=== PATIENT | male | born 1990 | race Caucasian/White ===

== ENCOUNTER 2021-10-16 16:10 | Emergency (ER) | payer OTHER, SELFPAY ==
[2021-10-16] VITALS (26 sets, daily range): BP systolic 130–155; BP diastolic 78–100; PULSE 71–112; RESP 10–18; TEMP 36.4–36.6; O2SAT 98–100
--- NOTE | ~2021-10-16 | XR_ITS ---
EXAMINATION: XR chest 2V DATE: 10/16/2021 16:27 INDICATION: Onset chest pain, tachycardia and shortness of breath TECHNIQUE: PA and lateral views of the chest were obtained. COMPARISON: None FINDINGS: The lungs are clear with no focal airspace opacities, pulmonary edema, pleural effusion or pneumothor ax. The cardiomediastinal silhouette is normal. Mild thoracic spondylosis. Chronic mild anterior wedg ing of a couple lower thoracic vertebral bodies. IMPRESSION: 1. No acute cardiopulmonary disease. Reviewed, dictated and finalized at location A. 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
--- NOTE | 2021-10-16 16:13 | ECG_ITS ---
Measurements Intervals [place] Rate: 109 P: 52 HI: 144 QRS: 69 QRSD: 91 T: 47 QT: 320 QTc: 431 Interpretive Statements SINUS TACHYCARDIA ABNORMAL RHYTHM ECG NO PREVIOUS ECG AVAILABLE FOR COMPARISON Electronically Signed On 10-16-2021 19:36:35 ENVIRONMENTAL HEALTH PHYSICIAN by Abby Draper M.D.
[2021-10-16 16:31] LABS: Basophils Percent Auto 0.3 % (0.2-1.2); Eosinophils Absolute Auto 0.3 K/mm3 (0-0.3); Hematocrit 46.1 % (42.0-52.0); Hemoglobin 15.8 g/dL (14.0-18.0); Immature Granulocyte Absolute 0.05 K/mm3 (0.00-0.031); Immature Granulocyte Percent A 0.4 % (0-0.5); Lymphocytes Absolute Auto 4.92 K/mm3 (0.9-3.2); Lymphocytes Percent Auto 38.5 % (18.3-44.2); Mean Corpuscular HGB Conc 34.3 g/dl (32-36); Mean Corpuscular Hemoglobin 29.4 pg (26-34); Mean Corpuscular Volume 85.8 fl (80-100); Mean Platelet Volume 9.1 fl (7.4-10.4); Monocytes Percent Auto 7.8 % (2.6-8.5); Neutrophils Absolute Auto 6.5 K/mm3 (1.3-6.7); Platelet Count Result 327 k/mm3 (150-375); Red Blood Count 5.37 M/mm3 (4.6-6.20); Red Cell Distribution Width 13.5 % (11.5-14.5); White Blood Count 12.8 K/mm3 (4.5-10.0)
[2021-10-16] MEDS: ASPIRIN 81 MG CHEWABLE TABLET 324 MG PO (16:32)
[2021-10-16] MEDS: SODIUM CHLORIDE 0.9% IV 1,000 ML 999 ML IV CONT (16:34)
--- NOTE | 2021-10-16 16:39 | ED.ARRPALP ---
HPI - Arrhythmia/Palpitations General Chief Complaint: Arrhythmia/Palpitations Stated Complaint: heart racing, left arm pain Time Seen by Provider: 10/16/21 16:22 Source: patient Mode of arrival: ambulatory Limitations: no limitations History of Present Illness HPI narrative: This is a 31 year old male that presents to the ER for anxiety. Reports worsening anxiety and stress. Reports today he woke up from a nap and left pain in the left shoulder and felt like his heart was racing which prompted him to be seen. Reports family history of coronary artery disease which concerned him and prompted him to be seen. Denies fever, cough or dyspnea. Related Data Allergies Allergy/AdvReac Type Severity Reaction Status Date / Time No Known Allergies Allergy Mild Verified 01/05/13 09:38 Review of Systems Review of Systems: CONSTITUTIONAL: Denies fever CARDIOVASCULAR: Reports chest pain and palpitations. Denies edema. RESPIRATORY: Denies cough or dyspnea. All systems reviewed & are unremarkable except as noted in HPI and below PMFSH Past Medical History Medical History (Updated 10/16/21 @ 19:39 by Myra Camarillo PA-C) History of anxiety Surgical History Surgical History (Updated 10/16/21 @ 16:43 by Myra Camarillo PA-C) History of appendectomy Social History Social History (Updated 10/16/21 @ 16:44 by Myra Camarillo PA-C) Smoking status: Current every day smoker Exam Narrative: GENERAL: Well-appearing, well-nourished, and in no acute distress. HEAD: Normocephalic, atraumatic. EYES: EOMI. ENT: Mucous membranes moist. Oropharynx without tonsillar hypertrophy exudate or other lesions. CHEST: Clear to auscultation. No respiratory distress. No wheezes rales or rhonchi HEART: Regular rate and rhythm. No murmur heard. Normal peripheral pulses. EXTREMITIES: Normal range of motion. No edema. SKIN: Warm, dry, no rash. NEURO: No focal deficits. Alert and oriented x3. PSYCH: Normal mood and affect Course Vital Signs Vital signs: Vital Signs Temperature 97.9 F 10/16/21 16:14 Pulse Rate 112 H 10/16/21 16:14 Respiratory Rate 18 10/16/21 16:14 Blood Pressure 150/94 H 10/16/21 16:14 Pulse Oximetry 100 10/16/21 16:14 Temperature 97.8 F 10/16/21 16:36 Pulse Rate 79 10/16/21 18:47 Respiratory Rate 12 10/16/21 18:47 Blood Pressure 135/84 10/16/21 18:47 Pulse Oximetry 100 10/16/21 18:47 MDM - Arrhythmia/Palpitations MDM Narrative Medical decision making narrative: Patient presents to the emergency department for anxiety and chest tightness. Tachycardic upon arrival, this normalized with IV fluids. Blood pressure also elevated on arrival, this normalized without intervention. CBC with mild leukocytosis to 12.8. Metabolic panel and lipase without concerning findings. EKG without acute ST changes and baseline and 3-hour troponin are negative. Chest x-ray without acute cardiopulmonary abnormality. Patient's heart score is a 1. He was updated on case findings. He is stable and felt appropriate for further outpatient evaluation. He was given warnings to return to the ER Lab Data Attestation: I reviewed the patient's lab results. Result diagrams: 10/16/21 16:23 10/16/21 16:23 Labs: Lab Results 10/16/21 10/16/21 10/16/21 Range/Units 16:23 16:23 16:23 WBC 12.8 H (4.5-10.0) K/mm3 RBC 5.37 (4.6-6.20) M/mm3 Hgb 15.8 (14.0-18.0) g/dL Hct 46.1 (42.0-52.0) % MCV 85.8 (80-100) fl MCH 29.4 (26-34) pg MCHC 34.3 (32-36) g/dl RDW 13.5 (11.5-14.5) % Plt Count 327 (150-375) k/mm3 MPV 9.1 (7.4-10.4) fl Immature Gran % (Auto) 0.4 (0-0.5) % Neut % (Auto) 51.0 (45.5-73.1) % Lymph % (Auto) 38.5 (18.3-44.2) % [place] % (Auto) 7.8 (2.6-8.5) % Eos % (Auto) 2.0 (0-4.4) % Baso % (Auto) 0.3 (0.2-1.2) % Lymph # (Auto) 4.92 H (0.9-3.2) K/mm3 [place] # (Auto) 1.0 H (0.1-0.6) K/mm3 Eos # (Auto)
[2021-10-16 16:40] LABS: Alanine Aminotransferase 46 U/L (4-50); Albumin Level 4.8 g/dL (3.5-5.1); Alkaline Phosphatase 120 U/L (38-126); Anion Gap 9 mmol/L (8-16); Aspartate Amino Transferase 34 U/L (17-59); Bilirubin,Total 0.5 mg/dL (0.2-1.3); Blood Urea Nitrogen 12 mg/dL (9-20); Calcium 9.3 mg/dL (8.4-10.2); Carbon Dioxide 25 mmol/L (22-30); Chloride 106 mmol/L (98-107); Estimated CRCL calculation 112 ml/min; Estimated Glomerular Filt Rate > 60; Glucose 133 mg/dL (65-110); Lipase 258 U/L (23-300); Potassium 3.9 mmol/L (3.4-5.0); Sodium 140 mmol/L (137-145)
[2021-10-16 16:42] LABS: INR 0.9; Partial Thromboplastin Time 26.5 SECONDS (22.3-36.8); Prothrombin Time 12.2 Seconds (11.1-14.7)
[2021-10-16 16:52] LABS: Troponin I < 0.012 ng/mL (0.000-0.034)
[2021-10-16] MEDS: LORazepam INJ (*CRX) 2 MG/ML VIAL 0.5 MG IV PUSH (17:10)
--- NOTE | 2021-10-16 18:47 | PC.NURSE ---
Dinner offered. Pt sitting on the side the side of the bed. No distress noted.
[2021-10-16 19:31] LABS: Troponin I < 0.012 ng/mL (0.000-0.034)
== END 2021-10-16 19:47 | disposition home or self-care (01) ==
PROVIDERS: Emergency Medicine; Emergency Provider Emergency Medicine
DX: F41.9 Anxiety disorder, unspecified (principal); R07.9 Chest pain, unspecified; F17.200 Nicotine dependence, unspecified, uncomplicated; R00.0 Tachycardia, unspecified
CPT/HCPCS: 36415; 71046; 80053; 83690; 84484; 85025; 85610; 85730; 93005; 96361; 96374; 99284; A9270; J2060; J7030

== ENCOUNTER 2021-10-18 23:13 | Emergency (ER) | payer OTHER, SELFPAY ==
--- NOTE | ~2021-10-18 | XR_ITS ---
EXAMINATION: XR chest 2V DATE: 10/19/2021 01:50 INDICATION: Chest pain TECHNIQUE: PA and lateral views of the chest were obtained. COMPARISON: Chest radiograph dated 10/16/2021 FINDINGS: The lungs remain clear with no focal airspace opacities, pulmonary edema, pleural effusion or pneumot horax. The cardiomediastinal silhouette is normal. Chronic mild anterior wedging of a few lower thora cic vertebral bodies. IMPRESSION: 1. No acute cardiopulmonary disease. Reviewed, dictated and finalized at location A.
[2021-10-18 23:15] VITALS: BP 151/96; PULSE 98; RESP 16; TEMP 36.6; O2SAT 98
--- NOTE | 2021-10-18 23:19 | ECG_ITS ---
Measurements Intervals [place] Rate: 87 P: 61 AR: 159 QRS: 62 QRSD: 102 T: 46 QT: 350 QTc: 421 Interpretive Statements SINUS RHYTHM WITH MARKED SINUS ARRHYTHMIA COMPARED TO ECG 10/16/2021 16:16:08 SINUS RHYTHM NOW PRESENT SINUS ARRHYTHMIA NOW PRESENT Electronically Signed On 10-19-2021 18:12:54 CDT by Abby Draper M.D.
[2021-10-18 23:30] VITALS: PULSE 96
[2021-10-19 00:56] VITALS: BP 125/86; PULSE 79; RESP 14; O2SAT 98
[2021-10-19 01:18] LABS: Basophils Absolute Auto 0.1 K/mm3 (0.0-0.1); Basophils Percent Auto 0.4 % (0.2-1.2); Eosinophils Absolute Auto 0.3 K/mm3 (0-0.3); Eosinophils Percent Auto 2.5 % (0-4.4); Hematocrit 46.1 % (42.0-52.0); Hemoglobin 15.7 g/dL (14.0-18.0); Immature Granulocyte Absolute 0.05 K/mm3 (0.00-0.031); Immature Granulocyte Percent A 0.4 % (0-0.5); Lymphocytes Absolute Auto 5.22 K/mm3 (0.9-3.2); Lymphocytes Percent Auto 40.1 % (18.3-44.2); Mean Corpuscular HGB Conc 34.1 g/dl (32-36); Mean Corpuscular Hemoglobin 29.1 pg (26-34); Mean Corpuscular Volume 85.4 fl (80-100); Mean Platelet Volume 9.6 fl (7.4-10.4); Monocytes Absolute Auto 0.9 K/mm3 (0.1-0.6); Monocytes Percent Auto 7.2 % (2.6-8.5); Neutrophils Absolute Auto 6.4 K/mm3 (1.3-6.7); Neutrophils Percent Auto 49.4 % (45.5-73.1); Platelet Count Result 373 k/mm3 (150-375); Red Cell Distribution Width 13.3 % (11.5-14.5)
[2021-10-19 01:26] LABS: Alanine Aminotransferase 53 U/L (4-50); Alkaline Phosphatase 98 U/L (38-126); Anion Gap 14 mmol/L (8-16); Aspartate Amino Transferase 39 U/L (17-59); Bilirubin,Total 0.7 mg/dL (0.2-1.3); Blood Urea Nitrogen 11 mg/dL (9-20); Calcium 9.5 mg/dL (8.4-10.2); Carbon Dioxide 24 mmol/L (22-30); Chloride 105 mmol/L (98-107); Estimated CRCL calculation 118 ml/min; Estimated Glomerular Filt Rate > 60; Glucose 97 mg/dL (65-110); Lipase 977 U/L (23-300); Potassium 3.5 mmol/L (3.4-5.0); Sodium 143 mmol/L (137-145)
[2021-10-19 01:38] LABS: Troponin I < 0.012 ng/mL (0.000-0.034)
[2021-10-19] MEDS: LORazepam (*CRX) 0.5 MG TABLET PO (01:50)
--- NOTE | 2021-10-19 02:01 | ED.CHESTPAIN ---
HPI - Chest Pain General Chief Complaint: Chest Pain Stated Complaint: cp Time Seen by Provider: 10/18/21 23:43 Source: patient History of Present Illness HPI narrative: Patient presents with 1 second of chest pain. Happened around 1040 this evening felt a sharp pain in his left chest and on his left hand resolved without intervention is not recurred. Reports history of anxiety was unsure if that was the cause of his symptoms but he wanted come to the ER for evaluation. Denies any shortness of breath nausea vomiting diaphoresis cough. Denies prior history of PEs denies any recent hospitalizations surgeries or significant family history of cardiac disease. Related Data Allergies Allergy/AdvReac Type Severity Reaction Status Date / Time No Known Allergies Allergy Mild Verified 01/05/13 09:38 Review of Systems Review of Systems: CONSTITUTIONAL: Denies fever, chills, or sweats. EYES: Denies visual changes, redness, or discharge. ENT: Denies rhinorrhea, congestion, sore throat, or otalgia. CARDIOVASCULAR: Denies palpitations, or edema. RESPIRATORY: Denies cough or dyspnea. GASTROINTESTINAL: Denies abdominal pain, nausea, vomiting, or diarrhea. GENITOURINARY: Denies dysuria or hematuria. SKIN: Denies rash or itching. MUSCULOSKELETAL: Denies back pain, joint pain, or myalgia. NEUROLOGIC: Denies headache, numbness, dizziness, or weakness. PSYCHIATRIC: Denies anxiety or depression. All systems reviewed & are unremarkable except as noted in HPI and below PMFSH Past Medical History Medical History History of anxiety Surgical History Surgical History History of appendectomy Social History Social History Smoking status: Current every day smoker Exam Narrative: GENERAL: Well-appearing, well-nourished, and in no acute distress. HEAD: Normocephalic, atraumatic. EYES: PERRLA and EOMI. ENT: Nares clear, no rhinorrhea or epistaxis. Mucous membranes moist. NECK: Supple. No masses. No JVD CHEST: Clear to auscultation. No respiratory distress. No wheezes rales or rhonchi HEART: Regular rate and rhythm. No murmur heard. Normal peripheral pulses. ABDOMEN: Soft, nontender, nondistended, normal active bowel sounds. EXTREMITIES: Normal range of motion. No edema. SKIN: Warm, dry, no rash. NEURO: No focal deficits. Alert and oriented x3. PSYCH: Normal mood and affect. Course Reevaluation(s) Reevaluation #1: Patient resting comfortably results plan reviewed with patient. Patient is comfortable with outpatient plan. Has not had recurrence of his symptoms while here in the ER Date: 10/19/21 Time: 02:02 Vital Signs Vital signs: Vital Signs Temperature 36.6 C 10/18/21 23:15 Pulse Rate 98 10/18/21 23:15 Respiratory Rate 16 10/18/21 23:15 Blood Pressure 151/96 H 10/18/21 23:15 Pulse Oximetry 98 10/18/21 23:15 Temperature 36.6 C 10/18/21 23:15 Pulse Rate 86 10/19/21 02:41 Respiratory Rate 18 10/19/21 02:41 Blood Pressure 128/84 10/19/21 02:41 Pulse Oximetry 98 10/19/21 02:41 MDM - Chest Pain MDM Narrative Medical decision making narrative: H&P as above, vss, pt looks clinically well, exam reassuring, labs with elevated lipase otherwise clinically unremarkable, img without acute process, additional labs/img considered, symptomatic relief available as needed, on reevaluation pt continues to looks clinically well. Symptoms remain of unclear etiology low concern for ACS, PE, dissection. Patient abdomen is nonacute he is counseled on his elevated lipase and diet changes. plan to tx/monitor as op w/ pcm f/u findings/plan discussed with pt, pt agree/comfortable with plan, return precautions given Lab Data Result diagrams: 10/19/21 01:09 10/19/21 01:09 Labs: Lab Results 10/19/21 10/19/21 Range/Units 01:09
[2021-10-19 02:41] VITALS: BP 128/84; PULSE 86; RESP 18; O2SAT 98
== END 2021-10-19 02:43 | disposition home or self-care (01) ==
PROVIDERS: Emergency Provider Emergency Medicine
DX: R07.89 Other chest pain (principal); R74.8 Abnormal levels of other serum enzymes; F17.200 Nicotine dependence, unspecified, uncomplicated
CPT/HCPCS: 36415; 71046; 80053; 83690; 84484; 85025; 93005; 99284; A9270

== ENCOUNTER 2023-05-07 03:19 | Emergency (ER) | payer OTHER, SELFPAY ==
[2023-05-07 03:24] VITALS: BP 141/93; PULSE 88; RESP 18; TEMP 36.1; O2SAT 99
[2023-05-07 04:05] VITALS: BP 136/96; PULSE 77; O2SAT 98
--- NOTE | 2023-05-07 04:33 | ED.DENTAL ---
HPI - Dental/Oral General Chief complaint: Dental/Oral Stated complaint: dental pain Time Seen by Provider: 05/07/23 04:22 History of Present Illness HPI Narrative: This is a 32-year-old male, no significant past medical history, presents emergency department complaining of tooth pain for the past several days. Pain is rated 8/10, described as dull. He states he has previously taken antibiotics for this but has not taken any in the past several months. He denies fevers, chills, difficulty swallowing or difficulty breathing. Related Data Allergies Allergy/AdvReac Type Severity Reaction Status Date / Time No Known Allergies Allergy Mild Verified 05/07/23 04:08 Review of Systems Review of Systems: All systems reviewed & are unremarkable except as noted in HPI and below (HPI) PMFSH Past Medical History Medical History History of anxiety Surgical History Surgical History History of appendectomy Social History Social History Smoking status: Current every day smoker Exam Narrative: GENERAL: Well-developed, well-nourished, appears uncomfortable HEAD: Normocephalic, atraumatic EYES: PERRLA and EOMI ENT: Poor dentition, multiple caries, erythema and induration is noted at tooth #17, consistent with dental abscess. nares clear, no rhinorrhea or epistaxis. Mucous membranes moist. Oropharynx without tonsillar hypertrophy or exudate or other lesions. NECK: Supple. No adenopathy or masses. No carotid bruits or JVD CHEST: Clear to auscultation. No respiratory distress. No wheezes, rales or rhonchi. HEART: Regular rate and rhythm. No murmur heard. normal peripheral pulses. EXTREMITIES: Normal range of motion. No edema. NEURO: No focal deficits. Alert and oriented x3. PSYCH: Normal mood and affect. Course Course Emergency Course: 04:35 - Exam consistent with dental abscess. Will manage pain with Toradol and discharged with antibiotics. The patient is in the process of establishing care with a dentist. Discussed return emergency precautions including signs /symptoms of airway compromise or respiratory distress. The patient voiced understanding and is comfortable with the plan. All questions answered to his satisfaction. Vital Signs Vital signs: Vital Signs Temperature 97.0 F L 05/07/23 03:24 Pulse Rate 88 05/07/23 03:24 Respiratory Rate 18 05/07/23 03:24 Blood Pressure 141/93 H 05/07/23 03:24 Pulse Oximetry 99 05/07/23 03:24 Temperature 97.0 F L 05/07/23 03:24 Pulse Rate 77 05/07/23 04:05 Respiratory Rate 18 05/07/23 03:24 Blood Pressure 136/96 H 05/07/23 04:05 Pulse Oximetry 98 05/07/23 04:05 MDM - Dental/Oral MDM Narrative Medical decision making narrative: Plan: Pain control, antibiotic, and dental follow-up, reassess Differential Diagnosis Differential diagnosis: Likely dental caries, toothache, dental abscess and other Discharge Plan Discharge Clinical Impression: Dental abscess, Dental caries, Toothache Patient Disposition: Home, Self-Care Condition: Stable Instructions: Antibiotic Form, Dental Abscess (ED) Additional Instructions: You were seen in the emergency department. Your exam is consistent with dental abscess. I recommend antibiotics and follow-up with a dentist. If you develop fevers with severe pain, difficulty breathing, difficulty swallowing, or if you have other emergent concerns for life, limb, or eyesight, return to the emergency department. Patient Language: [place]an Prescriptions: New amoxicillin-pot clavulanate 875-125 mg tablet 1 tablet PO Q12H Qty: 14 0RF oxycodone-acetaminophen [Endocet] 5-325 mg tablet 1 tablet PO Q12H PRN (Reason: pain) Qty: 4 0RF Follow-up/Referrals: PHYSICIAN,OPTIMIZATION ANALYST [Primary Care Provider] - Stand Alone Fo
[2023-05-07] MEDS: KETOROLAC 30 MG/ML VIAL (*BKC) IM (04:44)
== END 2023-05-07 04:49 | disposition home or self-care (01) ==
PROVIDERS: Emergency Provider Preventive Medicine Aerospace Medicine
DX: K04.7 Periapical abscess without sinus (principal); K02.9 Dental caries, unspecified; F17.200 Nicotine dependence, unspecified, uncomplicated
CPT/HCPCS: 96372; 99283; J1885

== ENCOUNTER 2024-08-08 08:37 | Emergency (ER) | payer SELFPAY ==
--- NOTE | ~2024-08-08 | XR_ITS ---
CHEST RADIOGRAPH, PA AND LATERAL CLINICAL HISTORY: cough . COMPARISON: 10/19/2021 TECHNIQUE: PA and lateral views of the chest. FINDINGS The cardiomediastinal silhouette is unremarkable. The lungs are clear. Visualized osseous structures and soft tissues are unremarkable. IMPRESSION: No focal infiltrate or effusion. Reviewed, dictated and finalized at location A. UET PILOT
--- NOTE | 2024-08-08 08:47 | ECG_ITS ---
Test Date: 2024-08-08 08:55:35 Measurements Intervals [place] Rate: 91 P: 35 GA: 142 QRS: 52 QRSD: 90 T: 57 QT: 351 QTc: 433 Interpretive Statements SINUS RHYTHM WITH SINUS ARRHYTHMIA No previous ECG available for comparison Electronically Signed On 08-12-2024 11:20:07 RN DOCUMENT IMPROVEMENT by Gerry Francisco M.D.
[2024-08-08 08:48] VITALS: BP 154/93; PULSE 91; RESP 18; TEMP 36.9; O2SAT 99
--- NOTE | 2024-08-08 11:17 | ED_ITS ---
HPI - URI/Sore Throat General Chief Complaint: Upper Respiratory Infection Stated Complaint: COUGH [id number] Time Seen by Provider: 08/08/24 11:10 History of Present Illness HPI Narrative: 34-year-old male presents to the emergency department for cough and chest pain for 1 week. Patient states he has had intermittent productive cough for 1 week that is not improving [place] 80 states that over past few days he has developed anterior left-sided chest wall pain that is worse with coughing. Denies shortness of breath, fever, history of VTE, lower extremity edema, recent surgeries or hospitalizations. States he smokes 1 pack per day for approximately 20 years. No formal diagnosis of COPD or asthma. He does admit to cardiac history with his brother and father. He is not established with a PCP. Related Data Allergies Allergy/AdvReac Type Severity Reaction Status Date / Time No Known Allergies Allergy Mild Verified 08/08/24 08:38 Review of Systems 2 Review of Systems: All systems reviewed & are unremarkable except as noted in HPI and below PMFSH Past Medical History Medical History History of anxiety Surgical History Surgical History History of appendectomy Social History Social History Smoking status: Current every day smoker Exam 2 Narrative: GENERAL: Well-appearing, well-nourished, and in no acute distress. HEAD: Normocephalic, atraumatic. EYES: EOMI. ENT: Nares clear, no rhinorrhea or epistaxis. Mucous membranes moist. NECK: Supple. CHEST: Clear to auscultation. No respiratory distress. HEART: Regular rate and rhythm. No murmur heard. Normal peripheral pulses. ABDOMEN: Soft, nontender, nondistended, normal active bowel sounds. EXTREMITIES: Normal range of motion. No edema. Negative Homans bilaterally SKIN: Warm, dry, no rash. NEURO: No focal deficits. Alert and oriented x3 Course Vital Signs Vital signs: Vital Signs Temperature 98.4 F 08/08/24 08:48 Pulse Rate 91 08/08/24 08:48 Respiratory Rate 18 08/08/24 08:48 Blood Pressure 154/93 H 08/08/24 08:48 Pulse Oximetry 99 08/08/24 08:48 Oxygen Delivery Room Air 08/08/24 08:48 Temperature 98.4 F 08/08/24 08:48 Pulse Rate 80 08/08/24 11:42 Respiratory Rate 18 08/08/24 11:42 Blood Pressure 141/102 H 08/08/24 11:42 Pulse Oximetry 99 08/08/24 11:42 Oxygen Delivery Room Air 08/08/24 11:41 MDM - URI/Sore Throat MDM Narrative Medical decision making narrative: 34-year-old male presents to the emergency department for productive cough for 1 week with anterior chest wall pain that occurs with coughing. Triage vitals with elevated blood pressure 154/93, otherwise unremarkable. He is afebrile and nontoxic and satting 99% on room air. EKG shows sinus rhythm with sinus arrhythmia with a rate of 91 ppm, normal [place] interval, normal QRS duration, normal QTC, no ischemic changes. Troponin is undetectable. Heart score is 1. Chest x-ray shows no acute cardiopulmonary findings. Lab work remarkable for leukocytosis of 15.8. Chemistries are unremarkable. Lipase is normal. Viral swabs are negative. Patient was updated on workup. Given extensive smoking history, will treat as a COPD exacerbation with Augmentin, prednisone and albuterol inhaler. Chest pain is atypical in nature and consistent with MSK etiology versus pleurisy. Prednisone will help with this. Advised close follow-up with PCP in discussed importance of smoking cessation to return precautions discussed. He is agreeable with the plan verbalized understanding. Discharged in stable condition. Lab Data 08/08/24 12:11 08/08/24 12:11 Labs: Lab Results 08/08/24 08/08/24 Range/Units 12:11 12:12 WBC 15.8 H (4.5-10.0) K/mm3 RBC 5.16 (4.6-6.20) M/mm3 Hgb 14.8 (14.0-18.0) g/dL Hct 43.2 (42.0-52.0) % MCV 83.7 (80-100) fl MCH 28.7 (26-34) pg MCHC 34.3 (32-36) g/dl RDW 13.8 (11.5-14.5) % Plt Count 322 (150-375) k/mm3 MPV 9.3 (7.4-10.4) fl Immature Gran % (Auto) 0.4 (0-0.5) % Neut % (Auto) 67.1 (45.5-73.1) % Lymph % (Auto) 26.5 (18.3-44.2) % [place] % (Auto) 4.5 (2.6-8.5) % Eos % (Auto) 1.1 (0-4.4) % Baso % (Auto) 0.4 (0.2-1.2) % Lymph # (Auto) 4.20 H (0.9-3.2) K/mm3 [place] # (Auto) 0.7 H (0.1-0.6) K/mm3 Eos # (Auto) 0.2 (0-0.3) K/mm3 Baso # (Auto) 0.1 (0.0-0.1) K/mm3 Abs Immat Gran (auto) 0.06 H (0.00-0.031) K/mm3 Absolute Neuts (auto) 10.6 H (1.3-6.7) K/mm3 Absolute Nucleated RBC 0.000 (0.0-0.012) K/mm3 Nucleated RBC % 0.0 (0.0-0.2) % PT 12.7 (11.1-14.7) Seconds INR 0.9 APTT 28.3 (22.3-36.8) Seconds Sodium 138 (137-145) mmol/L Potassium 4.2 (3.4-5.0) mmol/L Chloride 108 H (98-107) mmol/L Carbon Dioxide 26 (22-30) mmol/L Anion Gap 4 (4-12) mmol/L BUN 14 (9-20) mg/dL Creatinine 0.90 (0.7-1.3) mg/dL Estim Creat Clear Calc 120 ml/min Estimated GFR > 60 (59 - ) Glucose 99 (65-110) mg/dL Calcium 9.6 (8.4-10.2) mg/dL Total Bilirubin 0.5 (0.2-1.3) mg/dL AST 29 (17-59) U/L ALT 37 (6-50) U/L Alkaline Phosphatase 87 (38-126) U/L Troponin I < 0.012 (0.000-0.034) ng/mL Total Protein 8.0 (6.3-8.2) g/dL Albumin 4.4 (3.5-5.1) g/dL Lipase 97 (23-300) U/L Influenza A (RT-PCR) Negative (Negative) Influenza B (RT-PCR) Negative (Negative) RSV (RT-PCR) Negative (Negative) SARS-CoV-2 RNA (RT-PCR) Negative (Negative) Discharge Plan Discharge Clinical Impression: Bronchitis Patient Disposition: Home, Self-Care Condition: Stable Instructions: Antibiotic Form, How to Stop Smoking (ED), Acute Bronchitis (ED) Additional Instructions: Take antibiotics, steroids and albuterol inhaler as discussed. You can take Tylenol and ibuprofen as needed for pain as directed on the bottle [id number]. Follow up closely with primary care provider. Stop smoking. Return to the emergency department if you develop new or worsening symptoms. Patient Language: [place]an Prescriptions: New albuterol sulfate 90 mcg/actuation HFA aerosol inhaler 1 inh inhalation QID PRN (Reason: shortness of breath or wheezing) Qty: 6.7 0RF amoxicillin-pot clavulanate 875-125 mg tablet 1 tablet PO Q12H Qty: 14 0RF prednisone 20 mg tablet 40 mg PO DAILY Qty: 10 0RF No Action amoxicillin-pot clavulanate 875-125 mg tablet 1 tablet PO Q12H Qty: 14 0RF oxycodone-acetaminophen [Endocet] 5-325 mg tablet 1 tablet PO Q12H PRN (Reason: pain) Qty: 4 0RF Follow-up/Referrals: PHYSICIAN,[place] PREPARATION TECHNICIAN [Non-Staff] - Clint Knowles MD [Physician] -
[2024-08-08 11:41] VITALS: O2SAT 100
[2024-08-08 11:42] VITALS: BP 141/102; PULSE 80; RESP 18; O2SAT 99
[2024-08-08 12:24] LABS: Basophils Absolute Auto 0.1 K/mm3 (0.0-0.1); Basophils Percent Auto 0.4 % (0.2-1.2); Eosinophils Absolute Auto 0.2 K/mm3 (0-0.3); Eosinophils Percent Auto 1.1 % (0-4.4); Hematocrit 43.2 % (42.0-52.0); Hemoglobin 14.8 g/dL (14.0-18.0); Immature Granulocyte Absolute 0.06 K/mm3 (0.00-0.031); Immature Granulocyte Percent A 0.4 % (0-0.5); Lymphocytes Percent Auto 26.5 % (18.3-44.2); Mean Corpuscular HGB Conc 34.3 g/dl (32-36); Mean Corpuscular Hemoglobin 28.7 pg (26-34); Mean Corpuscular Volume 83.7 fl (80-100); Mean Platelet Volume 9.3 fl (7.4-10.4); Monocytes Absolute Auto 0.7 K/mm3 (0.1-0.6); Monocytes Percent Auto 4.5 % (2.6-8.5); Neutrophils Absolute Auto 10.6 K/mm3 (1.3-6.7); Neutrophils Percent Auto 67.1 % (45.5-73.1); Platelet Count Result 322 k/mm3 (150-375); Red Blood Count 5.16 M/mm3 (4.6-6.20); Red Cell Distribution Width 13.8 % (11.5-14.5); White Blood Count 15.8 K/mm3 (4.5-10.0)
[2024-08-08 12:33] LABS: Alanine Aminotransferase 37 U/L (6-50); Albumin Level 4.4 g/dL (3.5-5.1); Alkaline Phosphatase 87 U/L (38-126); Anion Gap 4 mmol/L (4-12); Aspartate Amino Transferase 29 U/L (17-59); Bilirubin,Total 0.5 mg/dL (0.2-1.3); Blood Urea Nitrogen 14 mg/dL (9-20); Calcium 9.6 mg/dL (8.4-10.2); Carbon Dioxide 26 mmol/L (22-30); Chloride 108 mmol/L (98-107); Estimated CRCL calculation 120 ml/min; Estimated Glomerular Filt Rate > 60; Glucose 99 mg/dL (65-110); Lipase 97 U/L (23-300); Potassium 4.2 mmol/L (3.4-5.0); Sodium 138 mmol/L (137-145)
[2024-08-08 12:44] LABS: Troponin I < 0.012 ng/mL (0.000-0.034)
[2024-08-08 12:51] LABS: INR 0.9; Partial Thromboplastin Time 28.3 Seconds (22.3-36.8); Prothrombin Time 12.7 Seconds (11.1-14.7)
[2024-08-08 13:00] LABS: Influenza A QL RT-PCR Negative (Negative); Influenza B QL RT-PCR Negative (Negative); RSV RNA, RT-PCR Negative (Negative); SARS-CoV-2 RNA PCR Negative (Negative)
[2024-08-08] MEDS: predniSONE 20 MG TABLET 40 MG PO (13:49)
[2024-08-08] MEDS: ACETAMINOPHEN 500 MG TABLET 1000 MG PO (13:49)
[2024-08-08] MEDS: AMOXICILLIN/CLAVULANATE K 875-125 MG TAB 1 TABLET PO (13:50)
== END 2024-08-08 13:55 | disposition home or self-care (01) ==
PROVIDERS: Emergency Provider Physician Assistant
DX: J40 Bronchitis, not specified as acute or chronic (principal); Z20.822 Contact with and (suspected) exposure to COVID-19; F17.210 Nicotine dependence, cigarettes, uncomplicated
CPT/HCPCS: 36415; 71046; 80053; 83690; 84484; 85025; 85610; 85730; 87637; 93005; 99284; A9270; J7512

== ENCOUNTER 2025-01-06 12:13 | Emergency (ER) | payer SELFPAY ==
[2025-01-06 12:27] VITALS: BP 140/85; PULSE 100; RESP 18; TEMP 36.9; O2SAT 99
--- NOTE | 2025-01-06 13:45 | ED.DENTAL ---
HPI - Dental/Oral General Chief complaint: Dental/Oral Stated complaint: Bottom left tooth pain Time Seen by Provider: 01/06/25 12:38 Source: patient Mode of arrival: ambulatory Limitations: no limitations History of Present Illness HPI Narrative: This is a 34 year old male that presents to the ER for dentalgia. Reports ongoing over the last 2 days. Denies fevers. MD Complaint: tooth pain Location: Tooth # (18) Related Data Allergies Allergy/AdvReac Type Severity Reaction Status Date / Time No Known Allergies Allergy Mild Verified 01/06/25 12:13 Review of Systems Review of Systems: All systems reviewed & are unremarkable except as noted in HPI and below PMFSH Past Medical History Medical History History of anxiety Surgical History Surgical History History of appendectomy Social History Social History Smoking status: Current every day smoker Exam Narrative: GENERAL: Well-appearing, well-nourished, and in no acute distress. HEAD: Normocephalic, atraumatic. EYES: EOMI. ENT: Nares clear, no rhinorrhea or epistaxis. Mucous membranes moist. Oropharynx without tonsillar hypertrophy exudate or other lesions. Poor dentition. No edema to fluctuance to suggest abscess. Floor of mouth is soft NECK: Supple. No adenopathy or masses. CHEST: No respiratory distress. HEART: Regular rate EXTREMITIES: Normal range of motion. No edema. SKIN: Warm, dry, no rash. NEURO: No focal deficits. Alert and oriented x3. PSYCH: Normal mood and affect Course Vital Signs Vital signs: Vital Signs Temperature 98.4 F 01/06/25 12:27 Pulse Rate 100 01/06/25 12:27 Respiratory Rate 18 01/06/25 12:27 Blood Pressure 140/85 01/06/25 12:27 Pulse Oximetry 99 01/06/25 12:27 Oxygen Delivery Room Air 01/06/25 12:27 Temperature 98.4 F 01/06/25 12:27 Pulse Rate 100 01/06/25 12:27 Respiratory Rate 18 01/06/25 12:27 Blood Pressure 140/85 01/06/25 12:27 Pulse Oximetry 99 01/06/25 12:27 Oxygen Delivery Room Air 01/06/25 12:27 MDM - Dental/Oral MDM Narrative Medical decision making narrative: Patient presents the emergency department for dentalgia. He is afebrile and nontoxic appearing. No evidence for abscess on exam. Will be started on Augmentin and instructed on the importance of seeing a dentist. He was given warnings to return to the ER Differential Diagnosis Differential diagnosis: Likely dental caries, toothache and dental abscess Critical Care Time Critical Care Time Critical Care Time: No Discharge Plan Discharge Clinical Impression: Toothache Patient Disposition: Home Condition: Stable Instructions: Antibiotic Form, Toothache (ED) Additional Instructions: Return to the Emergency Department if you experience fever >101, increasing swelling and redness of your tooth, or any other symptoms that are concerning to you Take antibiotic as prescribed. Tylenol or Ibuprofen as needed for pain. Follow up with your dentist Patient Language: Bruneian Prescriptions: New amoxicillin-pot clavulanate 875-125 mg tablet 1 tablet PO Q12H 10 Days Qty: 20 0RF No Action amoxicillin-pot clavulanate 875-125 mg tablet 1 tablet PO Q12H Qty: 14 0RF oxycodone-acetaminophen [Endocet] 5-325 mg tablet 1 tablet PO Q12H PRN (Reason: pain) Qty: 4 0RF albuterol sulfate 90 mcg/actuation HFA aerosol inhaler 1 inh inhalation QID PRN (Reason: shortness of breath or wheezing) Qty: 6.7 0RF prednisone 20 mg tablet 40 mg PO DAILY Qty: 10 0RF amoxicillin-pot clavulanate 875-125 mg tablet 1 tablet PO Q12H Qty: 14 0RF Follow-up/Referrals: UNKNOWN,DOCTOR [Primary Care Provider] - Stand Alone Forms: Work/School Release IP
== END 2025-01-06 13:57 | disposition home or self-care (01) ==
PROVIDERS: Emergency Provider Physician Assistant
DX: K08.89 Other specified disorders of teeth and supporting structures (principal); F41.9 Anxiety disorder, unspecified; F17.210 Nicotine dependence, cigarettes, uncomplicated
CPT/HCPCS: 99283

== ENCOUNTER 2025-03-08 04:46 | Emergency (ER) | payer SELFPAY ==
[2025-03-08 04:50] VITALS: BP 146/95; PULSE 87; RESP 20; TEMP 37; O2SAT 99
--- NOTE | 2025-03-08 05:47 | ED_ITS ---
HPI - Dental/Oral General Chief complaint: Dental/Oral Stated complaint: dental Time Seen by Provider: 03/08/25 05:44 History of Present Illness HPI Narrative: Patient with history of poor dentition presents here with increasing toothache, tried taking a Tylenol last night, trying to get [facility] to see the [facility]. Related Data Allergies Allergy/AdvReac Type Severity Reaction Status Date / Time No Known Allergies Allergy Mild Verified 03/08/25 04:53 Review of Systems Review of Systems: All systems reviewed & are unremarkable except as noted in HPI and below PMFSH Past Medical History Medical History History of anxiety Surgical History Surgical History History of appendectomy Social History Social History Smoking status: Current every day smoker Exam Narrative: EXAMINATION OF ORGAN SYSTEMS/BODY AREAS: Constitutional: Vital signs per nursing GENERAL:[No acute distress, non-toxic appearing.] HEAD: Normal with no signs of head trauma. EYES: EOMI, conjunctiva normal ENT: Very poor dentition, severe caries bottom left molar and elsewhere, no fluctuance or trismus LUNGS: Nonlabored breathing. HEART: [Regular rate and rhythm] ABD: [Soft], [nontender to palpation] EXT: Normal range of motion SKIN: [No rashes or lesions.] NEURO: [Alert and oriented x 3. No gross focal sensory or strength deficits.] PSYCH: Normal affect Course Vital Signs Vital signs: Vital Signs Temperature 98.6 F 03/08/25 04:50 Pulse Rate 87 03/08/25 04:50 Respiratory Rate 20 03/08/25 04:50 Blood Pressure 146/95 H 03/08/25 04:50 Pulse Oximetry 99 03/08/25 04:50 Oxygen Delivery Room Air 03/08/25 04:50 Temperature 98.6 F 03/08/25 04:50 Pulse Rate 87 03/08/25 04:50 Respiratory Rate 20 03/08/25 04:50 Blood Pressure 146/95 H 03/08/25 04:50 Pulse Oximetry 99 03/08/25 04:50 Oxygen Delivery Room Air 03/08/25 04:50 MDM - Dental/Oral MDM Narrative Medical decision making narrative: ED COURSE AND MEDICAL DECISION MAKING: Patient with worsening dental pain and dental decay. No palpable abscess. No systemic signs or symptoms. Analgesics are administered. Follow-up instructions given for dental/oral surgery clinics. Patient was given return precautions and discharged home in stable condition. Discharge Plan Discharge Clinical Impression: Dental caries Patient Disposition: Home Condition: Stable Instructions: Toothache (ED) Additional Instructions: Please take the antibiotics as prescribed, and follow up with a dentist as soon as you can. If the pain gets worse or if the swelling gets worse or anything else concerning, please return to the emergency room. Patient Language: Com[place]an Prescriptions: New amoxicillin 500 mg capsule 500 mg PO Q8H 7 Days Qty: 21 0RF ibuprofen 600 mg tablet 600 mg PO TID PRN (Reason: fever or pain) Qty: 30 0RF No Action amoxicillin-pot clavulanate 875-125 mg tablet 1 tablet PO Q12H Qty: 14 0RF oxycodone-acetaminophen [Endocet] 5-325 mg tablet 1 tablet PO Q12H PRN (Reason: pain) Qty: 4 0RF albuterol sulfate 90 mcg/actuation HFA aerosol inhaler 1 inh inhalation QID PRN (Reason: shortness of breath or wheezing) Qty: 6.7 0RF prednisone 20 mg tablet 40 mg PO DAILY Qty: 10 0RF amoxicillin-pot clavulanate 875-125 mg tablet 1 tablet PO Q12H Qty: 14 0RF amoxicillin-pot clavulanate 875-125 mg tablet 1 tablet PO Q12H 10 Days Qty: 20 0RF Follow-up/Referrals: UNKNOWN,DOCTOR [Primary Care Provider] -
[2025-03-08] MEDS: KETOROLAC 30 MG/ML VIAL (*BKC) 15 MG IM (05:56)
[2025-03-08] MEDS: AMOXICILLIN 500 MG CAPSULE PO (05:56)
== END 2025-03-08 06:04 | disposition home or self-care (01) ==
LOC: ANHED 05:59
PROVIDERS: Emergency Provider Emergency Medicine
DX: K02.9 Dental caries, unspecified (principal); F17.200 Nicotine dependence, unspecified, uncomplicated
CPT/HCPCS: 96372; 99283; A9270; J1885

== ENCOUNTER 2025-05-06 16:32 | Emergency (ER) | payer MEDICAID, SELFPAY ==
--- NOTE | ~2025-05-06 | XR_ITS ---
Examination: XR foot RT 2V, XR ankle RT min 3V Clinical History: ankle/foot injury, ttp over proximal fifth metatar Comparison: Right ankle radiographs 01/05/2013 Technique: 4 views right ankle, 2 views right foot Findings/impression: Right ankle: 1. Tiny avulsion fracture along lateral talus not excluded. 2. Otherwise no fracture identified right ankle. 3. Ankle mortise congruent. 4. Severe soft tissue swelling. Right foot: 1. No fracture identified right foot. 2. Severe midfoot soft tissue swelling. Reviewed, dictated and finalized at location R.
[2025-05-06 16:39] VITALS: BP 140/83; PULSE 117; RESP 20; TEMP 37.1; O2SAT 99
--- NOTE | 2025-05-06 18:48 | ED.LOWEXIN ---
HPI - Extremity Injury (Lower) General Chief Complaint: Extremity Injury, Lower Stated Complaint: R ankle injury Time Seen by Provider: 05/06/25 18:34 History of Present Illness HPI Narrative: This is a 34-year-old male with no significant past medical history presents to the ED for right ankle pain. Patient states that yesterday he was walking down sloped driveway when his right ankle twisted. He was able to ambulate that he has had significant worsening the swelling and pain since then to the point where he is having severe difficulty walking at this point. Related Data Allergies Allergy/AdvReac Type Severity Reaction Status Date / Time No Known Allergies Allergy Mild Verified 05/06/25 16:33 Review of Systems Review of Systems: Gen.: Denies fevers or chills Eyes: Denies eye pain or visual change ENT: Denies congestion Respiratory: Denies shortness of breath or cough CV: Denies chest pain or palpitations GI: Denies abdominal pain nausea, emesis or diarrhea denies burning, urgency, frequency or hematuria Musculoskeletal: As per HPI Neuro: Denies numbness, tingling, weakness or focal weakness Skin: Denies rash Except as documented, all other systems reviewed and negative [facility] Past Medical History Medical History History of anxiety Surgical History Surgical History History of appendectomy Social History Social History Smoking status: Current every day smoker Exam Narrative: APPEARANCE: No acute distress, nontoxic, resting in bed HEENT: Normocephalic, atraumatic, OMM RESPIRATORY: No respiratory distress CARDIOVASCULAR: Appears well perfused ABDOMINAL: Nondistended MUSCULOSKELETAl: Tenderness and ecchymosis over the right lateral malleolus, tenderness to palpation of the proximal right 5th metatarsal, tenderness to palpation over the right medial malleolus, neurovascularly intact distally. NEURO: Awake and alert. SKIN:: Warm, dry. No rashes lesions or abrasions PSYCHIATRIC: Normal affect/mood, Course Vital Signs Vital signs: Vital Signs Temperature 98.8 F 05/06/25 16:39 Pulse Rate 117 H 05/06/25 16:39 Respiratory Rate 20 05/06/25 16:39 Blood Pressure 140/83 05/06/25 16:39 Pulse Oximetry 99 05/06/25 16:39 Oxygen Delivery Room Air 05/06/25 16:39 Temperature 98.8 F 05/06/25 16:39 Pulse Rate 93 05/06/25 20:25 Respiratory Rate 18 05/06/25 20:25 Blood Pressure 137/86 05/06/25 20:25 Pulse Oximetry 100 05/06/25 20:25 Oxygen Delivery Room Air 05/06/25 16:39 MDM - Extremity Injury (Lower) MDM Narrative Medical decision making narrative: 34-year-old male presenting for right ankle injury. On initial evaluation, patient was in no acute distress afebrile, hemodynamically stable. He did have significant swelling and ecchymosis to the right ankle over the medial and lateral malleoli as well as tenderness over the proximal 5th metatarsal. X-rays showed a possible lateral talar avulsion fracture, no other fractures identified. Given the possible fracture, patient will be placed in a posterior short leg splint. Splint was placed by the emergency department mix technician under my supervision. The patient was neurovascularly intact both pre-and post procedure. Patient was deemed appropriate for discharge at this time. He was given a referral to Dr. Roy, orthopedic surgery, for further evaluation and management. Patient was agreeable to this plan. Given strict return precautions. Differential Diagnosis Differential diagnosis: Likely ankle sprain and strain, ankle fracture and other (Foot fracture, foot sprain) Medical Records Attestation: I reviewed the patient's medical records. Imaging Data Attestation: I personally reviewed and interpreted this imaging study as follows: (X-ray right ankle: No evidence of fractures. X-ray right foot: No evidence of fractures) Radiologist's impression: Findings/impression: Right ankle: 1. Tiny avulsion fracture along lateral talus not excluded. 2. Otherwise no fracture identified right ankle. 3. Ankle mortise congruent. 4. Severe soft tissue swelling. Right foot: 1. No fracture identified right foot. 2. Severe midfoot soft tissue swelling. Discharge Plan Discharge Clinical Impression: Talar fracture Qualifiers: Encounter type: initial encounter Fracture type: closed Talus location: unspecified portion of talus Fracture alignment: nondisplaced Laterality: right Qualified Code(s): S92.101A - Unspecified fracture of right talus, initial encounter for closed fracture Patient Disposition: Home Condition: Stable Instructions: Antibiotic Form, Ankle Fracture (DC) Additional Instructions: Please remain nonweightbearing until follow-up with orthopedic surgery. You were given a referral to Dr. Roy, follow-up with his office in the next few days for re-evaluation. You may take Tylenol and ibuprofen for pain. Return the ED for any new or worsening symptoms. For pain, discomfort or temperature greater than or equal to 100.8 ?F please alternate the following 2 medications as needed. First medication- acetaminophen/Tylenol- 1000mg every 6-8 hours as needed for above indications. Second medication- ibuprofen/Motrin-600mg every 6-8 hours as needed for above indication. Patient Language: Yi Prescriptions: No Action amoxicillin-pot clavulanate 875-125 mg tablet 1 tablet PO Q12H Qty: 14 0RF oxycodone-acetaminophen [Endocet] 5-325 mg tablet 1 tablet PO Q12H PRN (Reason: pain) Qty: 4 0RF albuterol sulfate 90 mcg/actuation HFA aerosol inhaler 1 inh inhalation QID PRN (Reason: shortness of breath or wheezing) Qty: 6.7 0RF prednisone 20 mg tablet 40 mg PO DAILY Qty: 10 0RF amoxicillin-pot clavulanate 875-125 mg tablet 1 tablet PO Q12H Qty: 14 0RF amoxicillin-pot clavulanate 875-125 mg tablet 1 tablet PO Q12H 10 Days Qty: 20 0RF amoxicillin 500 mg capsule 500 mg PO Q8H 7 Days Qty: 21 0RF ibuprofen 600 mg tablet 600 mg PO TID PRN (Reason: fever or pain) Qty: 30 0RF Follow-up/Referrals: PHYSICIAN,INDUSTRIAL TECHNOLOGY EDUCATION TEACHER [Primary Care Provider, Internal Medicine]
[2025-05-06] MEDS: KETOROLAC 30 MG/ML VIAL (*BKC) IM (19:26)
[2025-05-06 20:24] VITALS: BP 137/86; PULSE 93; RESP 18; O2SAT 100
[2025-05-06 20:25] VITALS: BP 137/86; PULSE 93; RESP 18; O2SAT 100
== END 2025-05-06 20:28 | disposition home or self-care (01) ==
PROVIDERS: Emergency Provider Student in an Organized Health Care Education/Training Program
DX: S92.144A Nondisplaced dome fracture of right talus, initial encounter for closed fracture (principal); F17.200 Nicotine dependence, unspecified, uncomplicated; X50.9XXA Other and unspecified overexertion or strenuous movements or postures, initial encounter
CPT/HCPCS: 29515; 73610; 73620; 96372; 99284; J1885